=== PATIENT | female | born 1985 | race Hispanic/Latino ===

== ENCOUNTER 2018-08-13 12:58 | Emergency (ER) | payer OTHER ==
[~2018-08-13] VITALS: Ht 165.1 cm; Wt 59.9 kg
[~2018-08-13 12:58] MED LIST: CITRANATAL HARM1 SG1 PO; IBUPROFEN800 MG PO; NATURAL IRON65 MG PO; OXYCODONE5 MG PO; ZOFRAN 4 MG TABL4 MG PO; ZOFRAN4 M1 SL
--- NOTE | 2018-08-13 14:51 | ULTRASOUND REPORT ---
EXAMINATION: US RETROPERITONEAL COMPLETE (RENAL) CLINICAL INFORMATION: Left-sided flank pain. Urinary symptoms. Rule out stone. COMPARISON: Renal ultrasound dated 09/18/2015 and 09/14/2015. TECHNIQUE: Real-time imaging of the kidneys and bladder. FINDINGS: RIGHT KIDNEY: 11.0 x 3.4 x 4.4 cm (SAG x AP x TRV). The kidney is normal in size, contour, and echogenicity. Renal cortical thickness is normal. No calculi or focal parenchymal lesions. No hydronephrosis. LEFT KIDNEY: 10.8 x 4.5 x 4.7 cm (SAG x AP x TRV). The kidney is normal in size, contour, and echogenicity. Renal cortical thickness is normal. No calculi or focal parenchymal lesions. No hydronephrosis. BLADDER: Well-distended and normal. Bilateral ureteral jets are demonstrated. Prevoid bladder volume is 104 mL. Postvoid bladder volume is 28.5 mL. IMPRESSION: Normal renal ultrasound.
[2018-08-13 17:21] LABS: ABSOLUTE BASOPHIL COUNT 0 /CUMM (0.0-0.2); ABSOLUTE EOSINOPHIL COUNT 0.2 /CUMM (0.0-0.7); ABSOLUTE GRANULOCYTE CT 2.5 /CUMM (1.4-6.5); ABSOLUTE LYMPH COUNT 2.7 /CUMM (1.2-3.4); ABSOLUTE MONOCYTE COUNT 0.4 /CUMM (0.10-0.60); BASOPHIL % 0.7 % (0.0-2.0); EOSINOPHIL % 4.1 % (0-5); GRANULOCYTE % 42.7 % (42.2-75.2); HEMATOCRIT 41.5 % (37-47); MEAN CORPUSCULAR HGB 29.7 PG (27.0-31.0); MEAN CORPUSCULAR HGB CONC 33.3 G/DL (33.0-37.0); MEAN CORPUSCULAR VOLUME 89.1 FL (81.0-99.0); MEAN PLATELET VOLUME 8.5 FL (7.4-10.4); PLATELET COUNT 290 /CUMM (130-400); RBC DISTRIBUTION WIDTH 12.4 % (11.5-14.5); RED BLOOD CELL CT 4.66 /CUMM (4.20-5.40); WHITE BLOOD CELL COUNT 5.9 /CUMM (4.8-10.8)
[2018-08-13] MEDS ORDERED: LEVOTHYROXINE50 MCG PO (18:08)
[2018-08-13] MEDS ORDERED: CIPRO500 M1 PO (18:13)
[2018-08-13] MEDS ORDERED: IBUPROFEN800 M1 PO (18:13)
[2018-08-13] MEDS ORDERED: PYRIDIUM200 M1 PO (18:13)
--- NOTE | 2018-08-13 18:14 | ED GI/GU/ABDOMINAL COMPLAINT ---
History of Present Illness General Chief Complaint: General Adult Stated Complaint: ABD/BACK PAIN Source: patient Exam Limitations: no limitations Vital Signs & Intake/Output Vital Signs & Intake/Output Vital Signs Date Time Temp Pulse Resp B/P B/P Pulse O2 O2 Flow FiO2 Mean Ox Delivery Rate 08/13 1831 98.0 80 20 136/70 98 Room Air 08/13 1521 82 18 154/66 97 Room Air 08/13 1345 98.5 80 20 108/66 97 Room Air Allergies Coded Allergies: No Known Allergies (08/13/18) Reconcile Medications Ciprofloxacin HCl (Cipro) 500 MG TABLET 1 TAB PO BID uti Ibuprofen 800 MG TABLET 1 TAB PO TID pain Levothyroxine Sodium 50 MCG TABLET 1 TAB PO DAILY THYROID (Reported) Phenazopyridine HCl (Pyridium) 200 MG TABLET 1 TAB PO TID uti Triage Note: TRIAGE: PT TO ER C/C PAIN TO L KIDNEY AREA AND INTO ABD X 3 DAYS, INTERMITTENT SINCE ONSET. REPORTS INCREASED URINARY FREQUENCY AND MALODOROUS URINE. KOLBY GALEAS AT TRIAGE FOR EVALUATION. Triage Nurses Notes Reviewed? yes ? N Is pt currently ? No Onset: Abrupt Duration: day(s): Timing: recent history HPI: 33-year-old female comes into the emergency room complaints of left flank pain wrapping around to left lower abdomen. Some lower abdominal pressure. Some dysuria and increased frequency with urination. 2 episodes of vomiting. Some nausea. Comes in for further evaluation. Denies any other associated symptoms. Past History Travel History Traveled to [place] past 21 day No Medical History Any Pertinent Medical History? see below for history Neurological: NONE EENT: NONE Cardiovascular: NONE Respiratory: NONE Gastrointestinal: NONE Hepatic: NONE Renal: NONE Musculoskeletal: NONE Psychiatric: NONE Endocrine: HYPOTHYROIDISM Blood Disorders: NONE Cancer(s): NONE PEST CONTROL WORKER/Reproductive: NONE Surgical History Surgical History: N Psychosocial History What is your primary language Afghan Tobacco Use: Quit >30 days ago ETOH Use: occasional use Illicit Drug Use: denies illicit drug use Family History Hx Contributory? No Review of Systems Review of Systems Constitutional: Reports: no symptoms. EENTM: Reports: no symptoms. Respiratory: Reports: no symptoms. Cardiovascular: Reports: no symptoms. GI: Reports: see HPI. Genitourinary: Reports: see HPI. Musculoskeletal: Reports: no symptoms. Skin: Reports: no symptoms. Neurological/Psychological: Reports: no symptoms. Hematologic/Endocrine: Reports: no symptoms. Immunologic/Allergic: Reports: no symptoms. All Other Systems: Reviewed and Negative Physical Exam Physical Exam General Appearance: well developed/nourished, no apparent distress, alert, awake , Suprapubic Tenderness, no right lower quadrant tenderness, negative McBurney's point, Head: atraumatic, normal appearance Eyes: Bilateral: normal appearance. Ears, Nose, Throat, Mouth: hearing grossly normal, moist mucous membrane Neck: normal inspection Respiratory: no respiratory distress Gastrointestinal: soft, negative McBurney's point, no right lower quadrant tenderness, suprapubic tenderness, Back: normal inspection Extremities: normal range of motion Neurologic/Psych: awake, alert, oriented x 3, normal gait Skin: intact, normal color Core Measures ACS in differential dx? No Sepsis Present: No Sepsis Focused Exam Completed? No Progress Differential Diagnosis: appendicitis, kidney stone, ovarian cyst, UTI/pyelo Plan of Care: Orders Procedure Date/time Status Add-on Test (ER Only) 08/13 1818 Active CULTURE,URINE 08/13 1520 Active URINE 08/13 1348 Complete URINALYSIS 08/13 1348 Complete LIPASE 08/13 1348 Complete COMPREHENSIVE METABOLIC PANEL 08/13 1348 Complete CBC WITHOUT DIFFERENTIAL 08/13 1348 Complete Laboratory Tests 08/13/18 1711: Anion Gap 9, Estimated GFR > 60, BUN/Creatinine Ratio 12.5, Glucose 94, Calcium 9.1, Total Bilirubin 0.6, AST 18, ALT 19, Alkaline Phosphatase 54, Total Protein 7.9, Albumin 4.6, Globulin 3.3, Albumin/Globulin Ratio 1.4, Lipase 96, CBC w Diff NO MAN DIFF REQ, RBC 4.66, MCV 89.1, MCH 29.7, MCHC 33.3, RDW 12.4, MPV 8.5 , Gran % 42.7, Lymphocytes % 45.5, Monocytes % 7.0, Eosinophils % 4.1, Basophils % 0.7, Absolute Granulocytes 2.5, Absolute Lymphocytes 2.7, Absolute Monocytes 0.4, Absolute Eosinophils 0.2, Absolute Basophils 0 08/13/18 1520: Urine Color YEL, Urine Clarity CLEAR, Urine pH 6.5, Ur Specific [place] 1.010, Urine Protein NEG, Urine Ketones NEG, Urine Nitrite POS H, Urine Bilirubin NEG, Urine Urobilinogen 2.0 H, Ur Leukocyte Esterase SMALL H, Ur Microscopic SEDIMENT EXAMINED, Urine WBC RARE, Ur Epithelial Cells MOD H, Urine Bacteria MOD H, Urine Hemoglobin NEG, Urine Glucose NEG, Urine Test NEGATIVE Microbiology 08/13 1520 URINE ROUT: Urine Culture - RECD Diagnostic Imaging: Viewed by Me: Ultrasound. Discussed w/RAD: Ultrasound. Radiology Impression: PATIENT: HERMANN GROVE PRESENT AGE: 33 PATIENT ACCOUNT NO: [id number] : 84 LOCATION: [facility] ORDERING PHYSICIAN: Danny JARRETT SERVICE DATE: 08/13/187747 EXAM TYPE : US - US-RENAL/KIDNEY EXAMINATION: US RETROPERITONEAL COMPLETE (RENAL) CLINICAL INFORMATION: Left-sided flank pain. Urinary symptoms. Rule out stone. COMPARISON : Renal ultrasound dated 09/18/2015 and 09/14/2015. TECHNIQUE: Real-time imaging of the kidneys and bladder. FINDINGS: RIGHT KIDNEY: 11.0 x 3.4 x 4.4 cm (SAG x AP x TRV). The kidney is normal in size, contour, and echogenicity. Renal cortical thickness is normal. No calculi or focal parenchymal lesions. No hydronephrosis. LEFT KIDNEY: 10.8 x 4.5 x 4.7 cm (SAG x AP x TRV). The kidney is normal in size, contour, and echogenicity. Renal cortical thickness is normal. No calculi or focal parenchymal lesions. No hydronephrosis. BLADDER: Well- distended and normal. Bilateral ureteral jets are demonstrated. Prevoid bladder volume is 104 mL. Postvoid bladder volume is 28.5 mL. IMPRESSION: Normal renal ultrasound. DICTATED BY: Joanna Sheffield MD DATE/TIME DICTATED:08/13/181444 MATTRESS RENOVATOR:YOLIE DATE/TIME TRANSCRIBED:08/13/181444 CONFIDENTIAL, DO NOT COPY WITHOUT APPROPRIATE AUTHORIZATION. <Electronically signed in Other Vendor System> SIGNED BY: Joanna Sheffield MD 08/13/18 4816 Initial ED EKG: none Comments: 08/13/2018 8:05:44 PM Due to the fact that the patient is symptomatic for UTI patient was treated with antibiotics. Low suspicion for appendicitis. Discussed possibility with patient. Negative McBurney's point. No white count. PT Is not toxic appearing. Patient will return if any concerns worsening symptoms. Take medications as prescribed. She understands and agrees with plan of care. There is no hydroureter indicate kidney stone. Upon reevaluating her she has 0 pain after the IM Toradol. Stable for discharge at this time. Departure Departure Disposition: HOME OR SELF CARE Condition: Stable Clinical Impression Primary Impression: Cystitis Referrals: Jose CLAY,Elia Gallegos (PCP/Family) Additional Instructions: Take ciprofloxacin, Pyridium, and ibuprofen as prescribed. Return if any concerns worsening of symptoms. Please go over all results of today's visit with your primary care doctor. Contact your primary care doctor to let them know you were here in the emergency room. There may be nonspecific findings which may not be related to your visit today here in the emergency room but may require further evaluation and chronic monitoring by your primary care doctor. If you had a laceration today the chance of foreign body always remains. You should follow-up with your primary care doctor for recheck in 3-5 days for a wound check. If you had an x-ray done there is a chance that a fracture could have been missed on initial read and you should follow-up with your primary care doctor for repeat x-rays if symptoms persist. If your blood pressure was elevated here in the emergency room please have rechecked by [facility] primary care doctor within the next 48. If you were prescribed a narcotic here in the emergency room or any type of controlled substances you're not allowed to drive while taking this medication or operate any type of heavy machinery. Narcotics can make you feel lightheaded dizziness nausea and can cause constipation. 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 Thank you for choosing [facility] emergency room. Please return to the emergency room immediately if you have any other concerns worsening of symptoms. Departure Forms: Customer Survey D/C INS-APPENDICITIS EXCLUSION General Discharge Information Prescriptions: Current Visit Scripts Ciprofloxacin HCl (Cipro) 1 TAB PO BID #14 TAB Phenazopyridine HCl (Pyridium) 1 TAB PO TID #9 TAB Ibuprofen 1 TAB PO TID #30 TAB
[2018-08-13 18:31] VITALS: BP 136/70
[2018-08-15] MEDS ORDERED: ZOFRAN ODT4 M1 SL (21:31)
[2018-08-15] MEDS ORDERED: KEFLEX500 M1 PO (21:31)
== END 2018-08-13 18:32 ==
LOC: ERH 12:58
PROVIDERS: Physician Assistant Medical
DX: N30.90 Cystitis, unspecified without hematuria (principal); R10.9 Unspecified abdominal pain; R30.0 Dysuria; R35.0 Frequency of micturition; E03.9 Hypothyroidism, unspecified; Z87.891 Personal history of nicotine dependence
CPT/HCPCS: 76775; 81001; 81025; 87086; J1885